=== PATIENT | male | born 1980 | race Caucasian/White ===

== ENCOUNTER → 2020-07-15 14:51 | Outpatient (CLI) | payer OTHER, SELFPAY ==
[2020-07-15] MEDS: COVID-19 VACC #1, MRNA(MOD) 100 MCG/0.5 ML VIAL IM (15:00)
== END ==
PROVIDERS: Visit Provider Internal Medicine
DX: Z23 Encounter for immunization (principal)
CPT/HCPCS: 0011A; 91301

== ENCOUNTER → 2020-08-13 15:58 | Outpatient (CLI) | payer OTHER, SELFPAY ==
[2020-08-13] MEDS: COVID-19 VACC #2, MRNA(MOD) 100 MCG/0.5 ML VIAL IM (16:06)
== END ==
PROVIDERS: Visit Provider Internal Medicine
DX: Z23 Encounter for immunization (principal)
CPT/HCPCS: 0012A; 91301

== ENCOUNTER 2023-01-02 18:28 | Emergency (ER) | payer OTHER, SELFPAY ==
[2023-01-02 18:34] VITALS: BP 157/89; PULSE 78; RESP 16; TEMP 37.2; O2SAT 98; BMI 34.4
--- NOTE | 2023-01-02 18:41 | DI.RAD.S_ITS ---
PROCEDURE: XR FOREARM RT 2V INDICATIONS: injury, fall TECHNIQUE: 2 views of the forearm were acquired. COMPARISON: None. FINDINGS: Bones: No fractures or dislocations. No suspicious bony lesions. Soft tissues: No suspicious soft tissue calcifications or masses. IMPRESSION: No acute osseous abnormality. If pain persists with conservative management, consider repeat x-ray in 10-14 days or cross-sectional imaging. Dictated by: Mt Pop M.D. on 01/02/2023 at 18:59 Approved by: Mt Pop M.D. on 01/02/2023 at 18:59
[2023-01-02] MEDS: TET,DIPH,PERTUSS(ACELL),VAC/PF 0.5 ML SYRINGE IM (19:14)
--- NOTE | 2023-01-02 20:15 | ED_ITS ---
HPI - Extremity Injury (Upper) General Chief Complaint: Extremity Injury, Upper Stated Complaint: RT ARM INJURY Time Seen by Provider: 01/02/23 20:09 Source: patient and family Mode of arrival: Ambulatory History of Present Illness HPI narrative: Patient is a healthy 42-year-old male who presents with right arm injury after fall off ladder. He reports that he was about 3 steps up on a ladder when he lost his footing caught himself with his right forearm. There is no head injury no loss of consciousness no neck pain or back pain. He is complaining of right mid shaft forearm pain and and has a small laceration. He reports he was w earing a to belt he had a nail gun which he is adamant did not go off and some other tools. Not on any antiplatelet or anticoagulation medication. Related Data Allergies Allergy/AdvReac Type Severity Reaction Status Date / Time No Known Drug Allergies Allergy Verified 01/02/23 18:59 Review of Systems Review of Systems ROS Unobtainable: All systems reviewed & are unremarkable except as noted in HPI and below Patient History Social History Smoking Status: Never smoker Smoking Status: Never smoker alcohol intake frequency: a few times a month Alcohol type: beer Substance Use Type: does not use Exam Initial Vital Signs Initial Vital Signs: Vital Signs Temperature 99 F 01/02/23 18:34 Pulse Rate 78 01/02/23 18:34 Respiratory Rate 16 01/02/23 18:34 Blood Pressure 157/89 H 01/02/23 18:34 Pulse Oximetry 98 01/02/23 18:34 Oxygen Delivery Method Room Air 01/02/23 18:34 GENERAL: Alert well-appearing 42-year-old male HEENT: Head atraumatic,EOMI, pupils reactive, NECK: No vertebral tenderness no step-offs full range of motion CARDIOVASCULAR: Regular rate and rhythm without murmurs, rubs or gallops. RESPIRATORY: Breath sounds equal bilaterally, no wheezes rales or rhonchi. ABDOMEN: Soft, nontender. Normoactive bowel sounds all 4 quadrants. No guardi ng or rebound. BACK: No vertebral tenderness EXTREMITIES: Normal range of motion, no clubbing or edema. Neurovascularly intact Right arm: No gross deformity small laceration right forearm 1.5 cm distal radial pulse intact neurovascularly intact remainder ulnar nerve intact NEUROLOGICAL: Alert and oriented x4 SKIN: 1.5 cm laceration right posterior for arm distal radial pulse intact Procedures Laceration Repair Laceration 1: Site: upper extremity Side (If applicable): right Size (cm): 2 Description: linear Depth: simple, single layer Local Anesthetic: lidocaine 1% Amount of anesthesia used (mL): 2 Pre-repair: wound explored, irrigated extensively and deep structures intact Skin layer closed with: nylon Skin layer suture size: 4-0 Number of sutures: 1 Technique: simple, interrupted Course Orders Ordered: ED Orders 01/02/23 18:41 XR forearm RT 2V Stat Discontinued Medications Diphtheria/Tetanus/Acell Pertussis (Tet,Diph,Pertuss(Acell),Vac/Pf 0.5 Ml Syringe) 0.5 ml IM .ONCE ONE Stop: 01/02/23 19:09 Last Admin: 01/02/23 19:14 Dose: 0.5 ml Documented By: KIANNA Vital Signs Vital signs: Vital Signs - 8 hr 01/02/23 20:42 Pulse Rate 64 Respiratory Rate 18 Blood Pressure 137/86 Pulse Oximetry 95 [facility] - Extremity Injury (Upper) Imaging Data Extremity x-ray #1: Radiologist's Impression: PROCEDURE:? XR FOREARM RT 2V ? INDICATIONS:? injury, fall ? TECHNIQUE:? 2 views of the forearm were acquired.? ? COMPARISON:? None. ? FINDINGS:? ? Bones:? No fractures or dislocations.? No suspicious bony lesions.? ? Soft tissues:? No suspicious soft tissue calcifications or masses.? ? ? IMPRESSION:? No acute osseous abnormality. If pain persists with conservative management, consider repeat x-ray in 10-14 days or cross-sectional imaging. ? Dictated by: Mt Pop M.D. on 01/02/2023 at 18:59 ? ? [facility] Narrative Medical decision making narrative: 42-year-old male who presents today with right arm injury. He has small laceration on right forearm neurovascularly intact see easily sutured with 1 suture. X-ray is negative. He really has no other injury fall was not from significant height. Discharge Plan Departure Patient Disposition: Home Clinical Impression: Laceration of right forearm Instructions: DI for Laceration Repair Activity Restrictions/Additional Instructions: Please keep the wound clean and dry to the best of your ability. Please monitor for signs of infection such as redness to the skin or increasing pain. Have the sutures/ryan removed by your doctor in about 7-10 days. If you are unable to get into your doctor, we would be happy to remove the sutures/ryan in that same timeframe. Stand Alone Forms: Patient Portal/API
[2023-01-02 20:42] VITALS: BP 137/86; PULSE 64; RESP 18; O2SAT 95
== END 2023-01-02 20:43 | disposition home or self-care (01) ==
PROVIDERS: Emergency Provider Emergency Medicine
DX: S41.111A Laceration without foreign body of right upper arm, initial encounter (principal); W11.XXXA Fall on and from ladder, initial encounter; Z23 Encounter for immunization
CPT/HCPCS: 12001; 73090; 90471; 99283; 99284; 90715

== ENCOUNTER → 2023-08-27 10:11 | Outpatient (CLI) | payer OTHER, SELFPAY | PROVIDERS: Visit Provider Registered Nurse | DX: J02.9 Acute pharyngitis, unspecified (principal) | CPT/HCPCS: 87070 ==

== ENCOUNTER 2023-12-06 18:57 | Emergency (ER) | payer OTHER, SELFPAY ==
[2023-12-06 19:09] VITALS: BP 136/82; PULSE 81; RESP 16; TEMP 36.1; O2SAT 98; BMI 33.5
[2023-12-06] MEDS: PROPARACAINE 0.5% OPHTH SOL 2 DROPS EYE-OP (19:35)
[2023-12-06] MEDS: FLUORESCEIN 1 MG STRIP EYE-BOTH (19:35)
--- NOTE | 2023-12-06 19:41 | ED_ITS ---
HPI - Eye Problem General Chief complaint: Eye Problems Stated complaint: rt eye irritation, possible FB Time Seen by Provider: 12/06/23 19:16 Source: patient Mode of arrival: Ambulatory History of Present Illness HPI Narrative: 43-year-old male presents with bilateral eye erythema, watering, irritation. Associated sore throat. Patient states that 1 week ago his kids had similar symptoms, but not nearly this bad and it resolved quickly. Yesterday patient stated that he was spray painting the side of the house with latex paint, and he was concerned that the foreign body sensation is paint underneath his eyes. Patient initially went to the walk-in clinic, but due to the extent of the erythema he was sent to the ER for evaluation. Patient denies use of glasses or contacts, states that his vision is at its baseline. Related Data Home Medications Medication Instructions Recorded Confirmed bupropion HCl PO 08/27/23 08/27/23 thyroid (pork) [Lookout Thyroid] PO 08/27/23 08/27/23 Previous Rx's Medication Instructions Recorded ciprofloxacin HCl 0.3 % eye drops 2 drp EYE-BOTH DIRECTED 1 week 12/06/23 #5 mL Allergies Allergy/AdvReac Type Severity Reaction Status Date / Time No Known Drug Allergies Allergy Verified 12/06/23 18:43 Patient History Social History Smoking Status: Never smoker Smoking Status: Never smoker alcohol intake frequency: a few times a month Alcohol type: beer Substance Use Type: does not use Exam Initial Vital Signs Initial Vital Signs: Vital Signs Temperature 96.9 F L 12/06/23 19:09 Pulse Rate 81 12/06/23 19:09 Respiratory Rate 16 12/06/23 19:09 Blood Pressure 136/82 12/06/23 19:09 Pulse Oximetry 98 12/06/23 19:09 Oxygen Delivery Method Room Air 12/06/23 19:09 Const: Awake, alert, no acute distress, nontoxic appearing HEENT: PERRLA, EOMI, no fluorescein uptake, eyelids everted - no foreign bodies found. Extensive chemosis and conjunctival erythema Skin: Warm, Dry, intact, no rashes Neuro: AO x3, CN II-XII grossly intact, moves all extremities Course Orders Ordered: Discontinued Medications Erythromycin (Erythromycin Ophth 1 Gm Oint) 1 applic EYE-BOTH NOW ONE Stop: 12/06/23 19:42 Last Admin: 12/06/23 19:58 Dose: 1 applic Documented By: NICK Fluorescein Sodium (Fluorescein 1 Mg Strip) 1 mg EYE-BOTH NOW ONE Stop: 12/06/23 19:18 Last Admin: 12/06/23 19:35 Dose: 1 mg Documented By: NICK Proparacaine HCl (Proparacaine 0.5% Ophth Tali) 2 drops EYE-OP NOW ONE Stop: 12/06/23 19:18 Last Admin: 12/06/23 19:35 Dose: 2 drops Documented By: NICK Vital Signs Vital signs: Vital Signs - 8 hr 12/06/23 19:09 Temperature 96.9 F L Pulse Rate 81 Respiratory Rate 16 Blood Pressure 136/82 Pulse Oximetry 98 Oxygen Delivery Method Room Air MDM - Eye Problem Lab Data Labs: Lab Results 12/06/23 Range/Units 20:00 Chlamy pneumoniae PCR Not detected (Not Detect) Adenovirus (PCR) Detected H (Not Detect) B.parapertussis DNA PCR Not detected (Not Detecte) Coronavirus OC43 (PCR) Not detected (Not Detect) Coronavirus HKU1 (PCR) Not detected (Not Detect) Coronavirus 229E (PCR) Not detected (Not Detect) SARS-CoV-2 (PCR) Not detected (Not Detecte) Coronavirus NL63 (PCR) Not detected (Not Detect) Human Metapneumovir PCR Not detected (Not Detect) Influenza Type A (PCR) Not detected (Not Detect) Influenza Type B (PCR) Not detected (Not Detect) M. pneumoniae (PCR) Not detected (Not Detect) Parainfluenza 1 (PCR) Not detected (Not Detect) Parainfluenza 2 (PCR) Not detected (Not Detect) Parainfluenza 3 (PCR) Not detected (Not Detect) Parainfluenza 4 (PCR) Not detected (Not Detect) RSV (PCR) Not detected (Not Detect) Entero/Rhino (PCR) Not detected (Not Detect) Group A Strep (PCR) Negative (Negative) MDM Narrative Medical decision making narrative: Well-appearing patient with severe red eye, foreign body sensation. Patient does have significant injection in both of his eyes, thankfully vision is unchanged. No fluorescein uptake, no foreign bodies found. Since patient reports that his children had similar symptoms 1 week prior to him experiencing symptoms, I strongly suspect that patient has adenovirus or other viral conjunctivitis, however due to the extreme injection and chemosis of his eyes I do feel it would be prudent to cover patient for bacterial conjunctivitis. Patient given erythromycin ointment and prescription sent to pharmacy of choice. Discharge Plan Departure Patient Disposition: Home Clinical Impression: Bacterial conjunctivitis Instructions: DI for Conjunctivitis Activity Restrictions/Additional Instructions: Finish all antibiotics as prescribed. I highly recommend following up with an eye doctor to make sure that your eyes returned to normal. If you notice any worsening of your vision, persistent eye pain, or any other concerning symptoms please feel free to return to the emergency department for repeat evaluation Prescriptions: New ciprofloxacin HCl 0.3 % drops 2 drp EYE-BOTH DIRECTED 7 Days Qty: 5 0RF Rx Instructions: 1-2 drops every 2 hrs while awake for 2 days, THEN 4 times daily for 5 days No Action thyroid (pork) [Lookout Thyroid] PO bupropion HCl PO Referrals: Miscellaneous,Doctor, MD [Primary Care Provider] - Stand Alone Forms: Patient Portal/API
[2023-12-06] MEDS: ERYTHROMYCIN OPHTH 1 GM OINT 1 APPLIC EYE-BOTH (19:58)
[2023-12-06 20:02] VITALS: BP 140/77; PULSE 74; O2SAT 98
[2023-12-06 20:19] LABS: Strep Grp A by PCR Rapid Negative (Negative)
[2023-12-06 20:27] VITALS: BP 145/68; PULSE 64; RESP 12; O2SAT 97
[2023-12-06 21:17] LABS: Adenovirus Detected (Not Detect); B. parapertussis Not Detected (Not Detecte); Bordetella pertussis Not Detected (Not Detect); Chlamydophila pneumoniae Not Detected (Not Detect); Coronavirus 229E Not Detected (Not Detect); Coronavirus HKU1 Not Detected (Not Detect); Coronavirus NL 63 Not Detected (Not Detect); Coronavirus OC43 Not Detected (Not Detect); Human Metapneumovirus Not Detected (Not Detect); Human Rhinovirus/Enterovirus Not Detected (Not Detect); Influenza A Not Detected (Not Detect); Influenza B Not Detected (Not Detect); Mycoplasma pneumoniae Not Detected (Not Detect); Parainfluenza Virus 1 Not Detected (Not Detect); Parainfluenza Virus 2 Not Detected (Not Detect); Parainfluenza Virus 3 Not Detected (Not Detect); Parainfluenza Virus 4 Not Detected (Not Detect); Respiratory Syncytial Virus Not Detected (Not Detect); SARS- CoV-2 Not Detected (Not Detecte)
== END 2023-12-06 20:42 | disposition home or self-care (01) ==
PROVIDERS: Emergency Provider Emergency Medicine
DX: H10.9 Unspecified conjunctivitis (principal); J02.9 Acute pharyngitis, unspecified; B34.0 Adenovirus infection, unspecified; Z11.52 Encounter for screening for COVID-19
CPT/HCPCS: 87633; 87651; 99282; 99283